=== PATIENT | male | born 1970 | race Caucasian/White ===

== ENCOUNTER 2017-07-19 19:53 | Emergency (ER) | payer BC ==
[2017-07-19] MEDS ORDERED: Cyclobenzaprine 10 MG Tab PO ONE ×2 (19:54→20:57)
[2017-07-19] MEDS ORDERED: Acetaminophen/HYDROcodone 325-10 MG Tab PO ONE (19:54)
--- NOTE | 2017-07-19 21:05 | EDM.PDOC ---
ED HPI GENERAL MEDICAL PROBLEM - General Chief Complaint: Lower Extremity Injury/Pain Stated Complaint: PAIN IN HIP [id number] Time Seen by Provider: 07/19/17 21:00 Source of Information: Reports: Patient History Limitations: Reports: No Limitations - History of Present Illness INITIAL COMMENTS - FREE TEXT/NARRATIVE: onset right sciatic pain Thursday while visiting [place], been doing lot of walking too. laso been taking MTX & pred many years. 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: Reports: Other Medication(s) Right Hip Pain Score (Numeric/FACES): 8 - Related Data Allergies Allergy/AdvReac Type Severity Reaction Status Date / Time Penicillins Allergy Severe Swelling Verified 07/19/17 20:22 Home Meds: Home Meds Multivitamin 1 tab PO DAILY 12/18/13 [History] Otc Labido Enhancer 12/18/13 [History] Aspirin [Halfprin] 81 mg PO DAILY 12/26/13 [History] Ibuprofen 800 mg PO 12/26/13 [History] Nitroglycerin 0.4 mg SL 12/26/13 [History] Omeprazole [Prilosec] 20 mg PO DAILY 12/26/13 [History] Calcium DAILY 07/19/17 [History] Folic Acid [Folic Acid] DAILY 07/19/17 [History] Methotrexate Sodium [Methotrexate] 8 tab PO DAILY 07/19/17 [History] Tramadol 1 tab PO ASDIRECTED PRN 07/19/17 [History] Vit D 5000 Iu 1 cap PO DAILY 07/19/17 [History] predniSONE [Prednisone] 07/19/17 [History] Past Medical History HEENT History: Reports: Impaired Vision Other HEENT History: wears glasses Cardiovascular History: Reports: Other (See Below) Other Cardiovascular History: pericarditis Respiratory History: Reports: None Gastrointestinal History: Reports: GERD Genitourinary History: Reports: None Musculoskeletal History: Reports: Other (See Below) Other Musculoskeletal History: decreased bone density Neurological History: Reports: None Psychiatric History: Reports: None Endocrine/Metabolic History: Reports: None Hematologic History: Reports: None Immunologic History: Reports: None Oncologic (Cancer) History: Reports: None Dermatologic History: Reports: None - Past Surgical History Musculoskeletal Surgical History: Reports: Other (See Below) Other Musculoskeletal Surgeries/Procedures:: 3 surgeries to left arm for reconstruction Social & Family History - Family History Family Medical History: Noncontributory - Tobacco Use Smoking Status *Q: Current Every Day Smoker Years of Tobacco use: 25 Packs/Tins Daily: 0.3 Second Hand Smoke Exposure: Yes - Caffeine Use Caffeine Use: Reports: Soda - Alcohol Use Days Per Week of Alcohol Use: 7 Number of Drinks Per Day: 1 Total Drinks Per Week: 7 Date of Last Drink: 07/19/17 - Recreational Drug Use Recreational Drug Use: No Review of Systems - Review of Systems Review Of Systems: ROS reveals no pertinent complaints other than HPI. ED EXAM, GENERAL - Physical Exam Exam: See Below Exam Limited By: No Limitations General Appearance: Alert, WD/WN, Mild Distress, Moderate Distress, Other (pain) Ears: Hearing Grossly Normal Throat/Mouth: Normal Voice, No Airway Compromise Head: Atraumatic Neck: Non-Tender, Full Range of Motion Respiratory/Chest: No Respiratory Distress Cardiovascular: Regular Rate, Rhythm GI/Abdominal: Soft, Non-Tender Back Exam: Other (right hip region tender with radiculitis, gait limited to pain ) Neurological: Alert, Oriented, Normal Cognition, No Motor/Sensory Deficits Psychiatric: Tearful Skin Exam: Warm, Dry, Normal Color Lymphatic: No Adenopathy Course - Vital Signs Last Recorded V/S: Last Vital Signs Temp 36.6 C 07/19/17 20:00 Pulse 94 07/19/17 20:00 Resp 16 07/19/17 20:00 BP 143/98 H 07/19/17 20:00 Pulse Ox 99 07/19/17 20:00 - Orders/Labs/Meds Meds: Medications Discontinued Medications Generic Name Dose Route Start Last Admin Trade Name Freq PRN Reason Stop Dose Admin Cyclobenzaprine HCl 5 mg 07/19/17 20:57 07/19/17 21:04 Flexeril PO 07/19/17 20:58 5 mg ONETIME ONE Administration - Re-Assessments/Exams Free Text/Narrative Re-Assessment/Exam: 07/19/17 22:52 results discussed with pt & spouse. Departure - Departure Time of Disposition: 22:53 Disposition: Home, Self-Care 01 Condition: Good Clinical Impression: SI joint arthritis, Lumbar radiculopathy, right Sciatica Qualifiers: Laterality: right Qualified Code(s): M54.31 - Sciatica, right side - Discharge Information Instructions: Sciatica, [id number] Forms: ED Department Discharge Additional Instructions: 1) rest and avoid bending lifting straining 2) try ice or heat to sore areas 3) see Thursday for MRI SCAN of [id number] region 4) recheck if there is any change or concerns rx togo; flexeril 10mg x 1 norco x 1
[2017-07-19] MEDS ORDERED: Cyclobenzaprine 10 MG Tab ONE (22:51)
[2017-07-19] MEDS ORDERED: Acetaminophen/HYDROcodone 325-10 MG Tab ONE (22:51)
== END 2017-07-19 23:00 | disposition home or self-care (01) ==
LOC: DL.ED 19:53
DX: M47.898 Other spondylosis, sacral and sacrococcygeal region (principal); M54.16 Radiculopathy, lumbar region; M54.41 Lumbago with sciatica, right side; F17.210 Nicotine dependence, cigarettes, uncomplicated; Z88.0 Allergy status to penicillin; Z79.899 Other long term (current) drug therapy; Z79.82 Long term (current) use of aspirin
CPT/HCPCS: 72131; 72192; 99283; A9270

== ENCOUNTER 2017-10-12 15:28 | Emergency (ER) | payer BC ==
--- NOTE | 2017-10-12 16:39 | CR ---
Clinical history: 47-year-old male chest pain. Interpretation: Patchy atelectasis left base reflecting poor inspiratory effort. No new signs of heart failure, lung mass or focal lobar pneumonia when compared to December 2013 exam. No pneumothorax. CONCLUSION: No acute new cardiopulmonary abnormality.
[2017-10-12 16:44] LABS: ANION GAP 12.9; CHLORIDE,CL 101 mmol/L (101-111); SODIUM,NA 135 mmol/L (135-145)
--- NOTE | 2017-10-12 17:46 | EDM.PDOC ---
ED HPI GENERAL MEDICAL PROBLEM - General Chief Complaint: Cardiovascular Problem Stated Complaint: [id number] PAIN ACROSS SHOULDER/HEART Time Seen by Provider: 10/12/17 17:10 Source of Information: Reports: Patient History Limitations: Reports: No Limitations - History of Present Illness INITIAL COMMENTS - FREE TEXT/NARRATIVE: This 47 yo male patient reports to the ED with chest pain (intermittent for the past 2 days). The patient reports [place] and had increased pain from his left shoulder through his entire chest with shortness of breath. The patient reports a history of paracarditis (last episode was in December). The patient reports he was placed on Methotrexate and prednisone after being diagnosed with paracarditis. The patient reports he has not been taken prednisone since June. Onset: Today Duration: Resolved Prior to Arrival Location: Reports: Chest Quality: Reports: Ache, Dull Severity: Moderate Improves with: Reports: Rest Worsens with: Reports: Other Associated Symptoms: Reports: Chest Pain Left Shoulder Pain Score (Numeric/FACES): 4 - Related Data Allergies Allergy/AdvReac Type Severity Reaction Status Date / Time Penicillins Allergy Severe Swelling Verified 07/19/17 20:22 Home Meds: Home Meds Multivitamin 1 tab PO DAILY 12/18/13 [History] Otc Labido Enhancer 12/18/13 [History] Aspirin [Halfprin] 81 mg PO DAILY 12/26/13 [History] Ibuprofen 800 mg PO 12/26/13 [History] Nitroglycerin 0.4 mg SL 12/26/13 [History] Omeprazole [Prilosec] 20 mg PO DAILY 12/26/13 [History] Calcium DAILY 07/19/17 [History] Folic Acid [Folic Acid] DAILY 07/19/17 [History] Methotrexate Sodium [Methotrexate] 8 tab PO WEEKLY 07/19/17 [History] Tramadol 1 tab PO ASDIRECTED PRN 07/19/17 [History] Vit D 5000 Iu 1 cap PO DAILY 07/19/17 [History] predniSONE [Prednisone] 10 mg PO DAILY 07/19/17 [History] Past Medical History HEENT History: Reports: Impaired Vision Other HEENT History: wears glasses Cardiovascular History: Reports: Other (See Below) Other Cardiovascular History: pericarditis Respiratory History: Reports: None Gastrointestinal History: Reports: GERD Genitourinary History: Reports: None Musculoskeletal History: Reports: Other (See Below) Other Musculoskeletal History: decreased bone density Neurological History: Reports: None Psychiatric History: Reports: None Endocrine/Metabolic History: Reports: None Hematologic History: Reports: None Immunologic History: Reports: None Oncologic (Cancer) History: Reports: None Dermatologic History: Reports: None - Past Surgical History Musculoskeletal Surgical History: Reports: Other (See Below) Other Musculoskeletal Surgeries/Procedures:: 3 surgeries to left arm for reconstruction Social & Family History - Family History Family Medical History: Noncontributory - Tobacco Use Smoking Status *Q: Current Every Day Smoker Years of Tobacco use: 10 Packs/Tins Daily: 0.3 Second Hand Smoke Exposure: Yes - Caffeine Use Caffeine Use: Reports: Coffee, Soda - Alcohol Use Days Per Week of Alcohol Use: 3 Number of Drinks Per Day: 1 Total Drinks Per Week: 3 - Recreational Drug Use Recreational Drug Use: No ED ROS GENERAL - Review of Systems Review Of Systems: ROS reveals no pertinent complaints other than HPI. ED EXAM, GENERAL - Physical Exam Exam: See Below Exam Limited By: No Limitations General Appearance: Alert, WD/WN, Mild Distress Eye Exam: Bilateral Eye: EOMI, Normal Inspection, PERRL Ears: Normal External Exam, Normal Canal, Hearing Grossly Normal, Normal TMs Nose: Normal Inspection, Normal Mucosa, No Blood Throat/Mouth: Normal Inspection, Normal Lips, Normal Teeth, Normal Gums, Normal Oropharynx, Normal Voice, No Airway Compromise Head: Atraumatic Neck: Normal Inspection, Supple, Non-Tender, Full Range of Motion Respiratory/Chest: Normal Breath Sounds, No Accessory Muscle Use, Chest Non- Tender, Decreased Breath Sounds Cardiovascular: Normal Peripheral Pulses, Regular Rate, Rhythm, No Edema, No Gallop, No JVD, No Murmur, No Rub GI/Abdominal: Normal Bowel Sounds, Soft, Non-Tender, No Organomegaly, No Distention, No Abnormal Bruit, No Mass, Pelvis Stable, Other (obese) (Male) Exam: Deferred Rectal (Males) Exam: Deferred Back Exam: Normal Inspection, Full Range of Motion, NT Extremities: Normal Inspection, Normal Range of Motion, Non-Tender, Normal Capillary Refill, No Pedal Edema Neurological: Alert, Oriented, CN II-XII Intact, Normal Cognition, Normal Gait, Normal Reflexes, No Motor/Sensory Deficits Psychiatric: Normal Affect, Normal Mood Skin Exam: Warm, Dry, Intact, Normal Color, No Rash Lymphatic: No Adenopathy Course - Vital Signs Last Recorded V/S: Last Vital Signs Temp 37.7 C 10/12/17 16:01 Pulse 108 H 10/12/17 16:01 Resp 20 10/12/17 16:01 BP 146/99 H 10/12/17 16:01 Pulse Ox 99 10/12/17 16:01 - Orders/Labs/Meds Orders: Active Orders 24 hr Category Date Time Status EKG Documentation Completion [RC] URGENT Care 10/12/17 16:08 Ordered Echo Comp wo Cont [US] Timed Exams 10/13/17 10:00 Ordered C-REACTIVE PROTEIN [CHEM] Stat Lab 10/12/17 18:41 Ordered CULTURE BLOOD [BC] Stat Lab 10/12/17 16:09 Ordered CULTURE BLOOD [BC] Stat Lab 10/12/17 16:09 Ordered SEDIMENTATION RATE MANUAL [HEME] Stat Lab 10/12/17 18:41 Ordered Blood Culture x2 Reflex Set [OM.PC] Stat Oth 10/12/17 16:08 Ordered Labs: Laboratory Tests 10/12/17 10/12/17 10/12/17 Range/Units 16:21 16:21 16:21 WBC 16.8 H (5.0-10.0) 10^3/uL RBC 5.76 (4.6-6.2) 10^6/uL Hgb 11.8 L (14.0-18.0) g/dL Hct 36.0 L (40.0-54.0) % MCV 62.5 L (80-100) fL MCH 20.5 L (27.0-34.0) pg MCHC 32.8 L (33.0-35.0) g/dL Plt Count 294 (150-450) 10^3/uL Neut % (Auto) 77.5 H (42.2-75.2) % Lymph % (Auto) 13.5 L (20.5-50.1) % Person % (Auto) 7.7 (2-8) % Eos % (Auto) 1.0 (1.0-3.0) % Baso % (Auto) 0.3 (0.0-1.0) % Sodium 135 (135-145) mmol/L Potassium 3.9 (3.6-5.0) mmol/L Chloride 101 (101-111) mmol/L Carbon Dioxide 25.0 (21.0-31.0) mmol/L Anion Gap 12.9 BUN 14 (7-18) mg/dL Creatinine 1.2 (0.6-1.3) mg/dL Est Cr Clr Drug Dosing 77.73 mL/min Estimated GFR (MDRD) > 60 BUN/Creatinine Ratio 11.66 Glucose 109 H (74-105) mg/dL Lactic Acid 1.6 (0.5-2.2) mmol/L Calcium 9.0 (8.4-10.2) mg/dl Total Bilirubin 1.2 H (0.2-1.0) mg/dL AST 27 (10-42) IU/L ALT 31 (10-60) IU/L Alkaline Phosphatase 50 (42-121) IU/L Troponin I < 0.02 (0.00-0.02) ng/ml B-Natriuretic Peptide (0-100) pg/ml Total Protein 7.0 (6.7-8.2) g/dl Albumin 4.0 (3.2-5.5) g/dl Globulin 3.0 Albumin/Globulin Ratio 1.33 03/19/18 Range/Units 16:21 WBC (5.0-10.0) 10^3/uL RBC (4.6-6.2) 10^6/uL Hgb (14.0-18.0) g/dL Hct (40.0-54.0) % MCV (80-100) fL MCH (27.0-34.0) pg MCHC (33.0-35.0) g/dL Plt Count (150-450) 10^3/uL Neut % (Auto) (42.2-75.2) % Lymph % (Auto) (20.5-50.1) % Person % (Auto) (2-8) % Eos % (Auto) (1.0-3.0) % Baso % (Auto) (0.0-1.0) % Sodium (135-145) mmol/L Potassium (3.6-5.0) mmol/L Chloride (101-111) mmol/L Carbon Dioxide (21.0-31.0) mmol/L Anion Gap BUN (7-18) mg/dL Creatinine (0.6-1.3) mg/dL Est Cr Clr Drug Dosing mL/min Estimated GFR (MDRD) BUN/Creatinine Ratio Glucose (74-105) mg/dL Lactic Acid (0.5-2.2) mmol/L Calcium (8.4-10.2) mg/dl Total Bilirubin (0.2-1.0) mg/dL AST (10-42) IU/L ALT (10-60) IU/L Alkaline Phosphatase (42-121) IU/L Troponin I (0.00-0.02) ng/ml B-Natriuretic Peptide 23 (0-100) pg/ml Total Protein (6.7-8.2) g/dl Albumin (3.2-5.5) g/dl Globulin Albumin/Globulin Ratio Meds: Medications Discontinued Medications Generic Name Dose Route Start Last Admin Trade Name Freq PRN Reason Stop Dose Admin Prednisone 40 mg 10/12/17 18:51 Prednisone PO 10/12/17 18:52 ONETIME ONE Departure - Departure Time of Disposition: 18:55 Disposition: Home, Self-Care 01 Condition: Fair Clinical Impression: Pericarditis Qualifiers: Pericarditis type: idiopathic Chronicity: acute Qualified Code(s): I30.0 - Acute nonspecific idiopathic pericarditis Instructions: Pericarditis Forms: ED Department Discharge Care Plan Goals: The patient and were advised of the examination, lab and x-ray results during the visit. The patient was given an oral dose of Prednisone (40 mg) while in the ED. The patient was scheduled for an Echo tomorrow at 1000. The patient was discharged with a script for Prednisone (20 mg) #10 to take 2 by mouth daily for 5 days. The results of the Echo and lab will be forwarded to Dr. Rhoades and Dr. Blackburn with [facility] in [place] for continued evaluation and management. If the patient has any additional symptoms or concerns, the patient should follow-up with his primary care facility or return to the emergency department. - My Orders Last 24 Hours: My Active Orders 10/12/17 16:08 EKG Documentation Completion [RC] URGENT Blood Culture x2 Reflex Set [OM.PC] Stat 10/12/17 16:09 CULTURE BLOOD [BC] Stat CULTURE BLOOD [BC] Stat 10/12/17 18:41 C-REACTIVE PROTEIN [CHEM] Stat SEDIMENTATION RATE MANUAL [HEME] Stat 10/13/17 10:00 Echo Comp wo Cont [US] Timed - Assessment/Plan Last 24 Hours: My Active Orders 10/12/17 16:08 EKG Documentation Completion [RC] URGENT Blood Culture x2 Reflex Set [OM.PC] Stat 10/12/17 16:09 CULTURE BLOOD [BC] Stat CULTURE BLOOD [BC] Stat 10/12/17 18:41 C-REACTIVE PROTEIN [CHEM] Stat SEDIMENTATION RATE MANUAL [HEME] Stat 10/13/17 10:00 Echo Comp wo Cont [US] Timed
[2017-10-12] MEDS ORDERED: predniSONE 20 MG Tab PO ONE (18:51)
--- NOTE | 2017-10-14 06:20 | EKG ---
10/12/2017 - EFREN MALIN - This 12-lead EKG shows a normal sinus rhythm with a ventricular rate of 98. Normal axis and intervals. No acute ST-segment or T-wave changes. [facility] /[id number]
== END 2017-10-12 19:10 | disposition home or self-care (01) ==
LOC: DL.ED 15:28
DX: I30.0 Acute nonspecific idiopathic pericarditis (principal); F17.210 Nicotine dependence, cigarettes, uncomplicated; Z88.0 Allergy status to penicillin; Z79.82 Long term (current) use of aspirin; Z79.899 Other long term (current) drug therapy
CPT/HCPCS: 36415; 71046; 80053; 83605; 83880; 84484; 85025; 85651; 86140; 87040; 93005; 99285; A9270

== ENCOUNTER 2017-10-13 17:18 | Inpatient (IN) | payer BC ==
--- NOTE | 2017-10-13 17:49 | EDM.PDOC ---
<Kalyani Reese - Last Filed: 10/13/17 18:31> ED HPI GENERAL MEDICAL PROBLEM - General Stated Complaint: [id number] SOB CHEST PAIN Time Seen by Provider: 10/13/17 17:25 Source of Information: Reports: Patient, Family, Old Records, RN, RN Notes Reviewed History Limitations: Reports: No Limitations - History of Present Illness INITIAL COMMENTS - FREE TEXT/NARRATIVE: Tanner is a 47 yo male who presents to the ED due to chest pain and shortness of breath. He reports that he had similar pain yesterday and was seen in the ED and had an echo this am. Reports that he was not having any pain until about a couple hours ago when he was admitting his son to the hospital. He reports that he was just sitting in a chair when the pain had started. Reports that his pain gets worse with lying flat. Pain improves with sitting up. He describes the pain as tightness in his chest starting in his left chest and radiating down into his right upper abd. Denies nausea or vomiting. Reports that he has been more short of breath today. He has had a productive cough and low grade fever since yesterday with a temp up to 99 at home. Patient denies constipation or diarrhea. Denies runny nose, sore throat, or sinus pressure. Onset: Today Onset Date: 10/13/17 Onset Time: 15:30 Duration: Hour(s):, Getting Worse, Heavy Location: Reports: Chest Quality: Reports: Dull Severity: Moderate Improves with: Reports: Other (Sitting up in a chair ) Worsens with: Reports: Movement Associated Symptoms: Reports: Chest Pain, cough w sputum, Fever/Chills Bilateral Chest Pain Score (Numeric/FACES): 10 - Related Data Allergies Allergy/AdvReac Type Severity Reaction Status Date / Time Penicillins Allergy Severe Swelling Verified 10/13/17 21:14 Home Meds: Home Meds Multivitamin 1 tab PO DAILY 12/18/13 [History] Aspirin [Halfprin] 81 mg PO DAILY 12/26/13 [History] Ibuprofen 800 mg PO Q8H 12/26/13 [History] Nitroglycerin 0.4 mg SL ASDIRECTED PRN 12/26/13 [History] Omeprazole [Prilosec] 20 mg PO DAILY 12/26/13 [History] Calcium 1,200 mg PO DAILY 07/19/17 [History] Folic Acid [Folic Acid] 1 mg PO DAILY 07/19/17 [History] Methotrexate Sodium [Methotrexate] 20 mg PO WEEKLY 07/19/17 [History] Tramadol 50 mg PO Q6H PRN 07/19/17 [History] Vit D 5000 Iu 1 cap PO DAILY 07/19/17 [History] predniSONE [Prednisone] 10 mg PO DAILY 07/19/17 [History] Past Medical History HEENT History: Reports: Impaired Vision Other HEENT History: wears glasses Cardiovascular History: Reports: Other (See Below) Other Cardiovascular History: pericarditis Respiratory History: Reports: None Gastrointestinal History: Reports: GERD Genitourinary History: Reports: None Musculoskeletal History: Reports: Other (See Below) Other Musculoskeletal History: decreased bone density Neurological History: Reports: None Psychiatric History: Reports: None Endocrine/Metabolic History: Reports: None Hematologic History: Reports: None Immunologic History: Reports: None Oncologic (Cancer) History: Reports: None Dermatologic History: Reports: None - Past Surgical History Musculoskeletal Surgical History: Reports: Other (See Below) Other Musculoskeletal Surgeries/Procedures:: 3 surgeries to left arm for reconstruction Social & Family History - Family History Family Medical History: Noncontributory - Tobacco Use Smoking Status *Q: Current Every Day Smoker Years of Tobacco use: 10 Packs/Tins Daily: 0.3 Second Hand Smoke Exposure: Yes - Caffeine Use Caffeine Use: Reports: Coffee, Soda - Alcohol Use Days Per Week of Alcohol Use: 3 Number of Drinks Per Day: 1 Total Drinks Per Week: 3 - Recreational Drug Use Recreational Drug Use: No ED ROS GENERAL - Review of Systems Review Of Systems: ROS reveals no pertinent complaints other than HPI. ED EXAM, GENERAL - Physical Exam Exam: See Below Exam Limited By: No Limitations General Appearance: Alert, WD/WN, No Apparent Distress Eye Exam: Bilateral Eye: EOMI, PERRL Ears: Normal External Exam, Normal Canal, Hearing Grossly Normal, Normal TMs Ear Exam: Bilateral Ear: Auricle Normal, Canal Normal, TM normal Nose: Normal Inspection, Normal Mucosa, No Blood Throat/Mouth: Normal Inspection, Normal Lips, Normal Teeth, Normal Gums, Normal Oropharynx, Normal Voice, No Airway Compromise Head: Atraumatic, Normocephalic Neck: Normal Inspection, Supple, Non-Tender, Full Range of Motion Respiratory/Chest: Lungs Clear (Clear lung sounds bilaterally, dimished throughout. Patient has chest pain to left chest radiating into upper right abdomin.), Accessory Muscle Use (Abdominal breathing noted. ) Cardiovascular: Normal Peripheral Pulses, Regular Rate, Rhythm, No Edema, No Gallop, No JVD, No Murmur, No Rub GI/Abdominal: Normal Bowel Sounds, Soft, Non-Tender, No Organomegaly, No Distention, No Abnormal Bruit, No Mass (Male) Exam: Deferred Rectal (Males) Exam: Deferred Back Exam: Normal Inspection, Full Range of Motion, NT Extremities: Normal Inspection, Normal Range of Motion, Non-Tender, Normal Capillary Refill, No Pedal Edema Neurological: Alert, Oriented, CN II-XII Intact, Normal Cognition, Normal Gait, Normal Reflexes, No Motor/Sensory Deficits Psychiatric: Normal Affect, Normal Mood Skin Exam: Warm, Dry, Intact, Normal Color, No Rash Lymphatic: No Adenopathy EKG INTERPRETATION EKG Date: 10/13/17 Time: 17:41 Rhythm: Other (Sinus tachycardia) Rate (Beats/Min): 104 [place]: Normal P-Wave: Present QRS: Normal ST-T: Normal QT: Normal Comparison: No Change Course - Vital Signs Last Recorded V/S: Last Vital Signs Temp 98.2 F 10/14/17 00:00 Pulse 93 10/14/17 00:00 Resp 18 10/14/17 00:00 BP 130/77 10/13/17 21:35 Pulse Ox 99 10/14/17 00:00 - Orders/Labs/Meds Orders: Medication Orders Albuterol (Proventil Neb Soln) 2.5 mg NEB Q4HRRT PRN PRN Reason: dyspnea Last Admin: 10/14/17 00:17 Dose: 2.5 mg Enoxaparin Sodium (Lovenox) 40 mg SUBCUT DAILY [facility] Sodium Chloride (Normal Saline) 1,000 mls @ 125 mls/hr IV ASDIRECTED [facility] Last Admin: 10/13/17 21:19 Dose: 125 mls/hr Ketorolac Tromethamine (Toradol) 30 mg IVPUSH Q8H PRN PRN Reason: Pain Stop: 10/19/17 00:23 Last Admin: 10/14/17 00:47 Dose: 30 mg Morphine Sulfate (Morphine) 2 mg IVPUSH Q2H PRN PRN Reason: Pain (severe 7-10) Last Admin: 10/13/17 22:02 Dose: 2 mg Ondansetron HCl (Zofran) 4 mg IVPUSH Q6H PRN PRN Reason: Nausea/Vomiting Labs: Laboratory Tests 10/13/17 10/13/17 10/13/17 Range/Units 00:03 17:47 17:47 WBC 19.1 H (5.0-10.0) 10^3/uL RBC 6.01 (4.6-6.2) 10^6/uL Hgb 12.4 L (14.0-18.0) g/dL Hct 37.7 L (40.0-54.0) % MCV 62.7 L (80-100) fL MCH 20.6 L (27.0-34.0) pg MCHC 32.9 L (33.0-35.0) g/dL Plt Count 310 (150-450) 10^3/uL Neut % (Auto) 90.1 H (42.2-75.2) % Lymph % (Auto) 5.9 L (20.5-50.1) % [place] % (Auto) 3.7 (2-8) % Eos % (Auto) 0.1 L (1.0-3.0) % Baso % (Auto) 0.2 (0.0-1.0) % D-Dimer, Quantitative (0-400) ng/mL Sodium 133 L (135-145) mmol/L Potassium 4.0 (3.6-5.0) mmol/L Chloride 98 L (101-111) mmol/L Carbon Dioxide 24.0 (21.0-31.0) mmol/L Anion Gap 15.0 BUN 19 H (7-18) mg/dL Creatinine 1.2 (0.6-1.3) mg/dL Est Cr Clr Drug Dosing TNP Estimated GFR (MDRD) > 60 BUN/Creatinine Ratio 15.83 Glucose 145 H (74-105) mg/dL Lactic Acid (0.5-2.2) mmol/L Calcium 9.3 (8.4-10.2) mg/dl Total Bilirubin 1.1 H (0.2-1.0) mg/dL AST 26 (10-42) IU/L ALT 30 (10-60) IU/L Alkaline Phosphatase 52 (42-121) IU/L Troponin I < 0.02 < 0.02 (0.00-0.02) ng/ml Total Protein 7.4 (6.7-8.2) g/dl Albumin 4.2 (3.2-5.5) g/dl Globulin 3.2 Albumin/Globulin Ratio 1.31 Urine Color (YELLOW) Urine Appearance (CLEAR) Urine pH (5.0-9.0) Ur Specific [place] (1.005-1.030) Urine Protein (NEGATIVE) Urine Glucose (UA) (NEGATIVE) Urine Ketones (NEGATIVE) Urine Occult Blood (NEGATIVE) Urine Nitrite (NEGATIVE) Urine Bilirubin (NEGATIVE) Urine Urobilinogen (0.2-1.0) mg/dL Ur Leukocyte Esterase (NEGATIVE) Urine RBC /HPF Urine WBC (0-5/HPF) /HPF Ur Epithelial Cells /HPF Urine Bacteria (0-FEW/HPF) /HPF Urine Mucus /LPF 10/13/17 10/13/17 10/13/17 Range/Units 17:47 18:20 18:41 WBC (5.0-10.0) 10^3/uL RBC (4.6-6.2) 10^6/uL Hgb (14.0-18.0) g/dL Hct (40.0-54.0) % MCV (80-100) fL MCH (27.0-34.0) pg MCHC (33.0-35.0) g/dL Plt Count (150-450) 10^3/uL Neut % (Auto) (42.2-75.2) % Lymph % (Auto) (20.5-50.1) % [place] % (Auto) (2-8) % Eos % (Auto) (1.0-3.0) % Baso % (Auto) (0.0-1.0) % D-Dimer, Quantitative 112 (0-400) ng/mL Sodium (135-145) mmol/L Potassium (3.6-5.0) mmol/L Chloride (101-111) mmol/L Carbon Dioxide (21.0-31.0) mmol/L Anion Gap BUN (7-18) mg/dL Creatinine (0.6-1.3) mg/dL Est Cr Clr Drug Dosing Estimated GFR (MDRD) BUN/Creatinine Ratio Glucose (74-105) mg/dL Lactic Acid 2.4 H (0.5-2.2) mmol/L Calcium (8.4-10.2) mg/dl Total Bilirubin (0.2-1.0) mg/dL AST (10-42) IU/L ALT (10-60) IU/L Alkaline Phosphatase (42-121) IU/L Troponin I (0.00-0.02) ng/ml Total Protein (6.7-8.2) g/dl Albumin (3.2-5.5) g/dl Globulin Albumin/Globulin Ratio Urine Color Yellow (YELLOW) Urine Appearance Slightly cloudy (CLEAR) Urine pH 6.0 (5.0-9.0) Ur Specific [place] <= 1.005 (1.005-1.030) Urine Protein Negative (NEGATIVE) Urine Glucose (UA) Negative (NEGATIVE) Urine Ketones Negative (NEGATIVE) Urine Occult Blood Negative (NEGATIVE) Urine Nitrite Negative (NEGATIVE) Urine Bilirubin Negative (NEGATIVE) Urine Urobilinogen 0.2 (0.2-1.0) mg/dL Ur Leukocyte Esterase Negative (NEGATIVE) Urine RBC 0-5 /HPF Urine WBC 0-5 (0-5/HPF) /HPF Ur Epithelial Cells Rare /HPF Urine Bacteria Not seen (0-FEW/HPF) /HPF Urine Mucus Rare /LPF Meds: Medications Generic Name Dose Route Start Last Admin Trade Name Freq PRN Reason Stop Dose Admin Albuterol 2.5 mg 10/13/17 23:53 10/14/17 00:17 Proventil Neb Soln NEB 2.5 mg Q4HRRT PRN Administration dyspnea Enoxaparin Sodium 40 mg 10/14/17 09:00 Lovenox SUBCUT DAILY [facility] Sodium Chloride 1,000 mls @ 125 mls/hr 10/13/17 19:45 10/13/17 21:19 Normal Saline IV 125 mls/hr ASDIRECTED KEY[facility] Administration Ketorolac Tromethamine 30 mg 10/14/17 00:23 10/14/17 00:47 Toradol IVPUSH 10/19/17 00:23 30 mg Q8H PRN Administration Pain Morphine Sulfate 2 mg 10/13/17 19:35 10/13/17 22:02 Morphine IVPUSH 2 mg Q2H PRN Administration Pain (severe 7-10) Ondansetron HCl 4 mg 10/13/17 19:35 Zofran IVPUSH Q6H PRN Nausea/Vomiting Discontinued Medications Generic Name Dose Route Start Last Admin Trade Name Freq PRN Reason Stop Dose Admin Azithromycin 500 mg/ Sodium 250 mls @ 250 mls/hr 10/13/17 21:08 10/13/17 21: 21 Chloride IV 10/13/17 22:07 250 mls/hr ONETIME ONE Administration Ibuprofen 400 mg 10/13/17 19:35 Motrin PO 10/14/17 00:39 Q6H PRN Pain (mild 1-3) Iopamidol 100 ml 10/13/17 19:11 Isovue-370 (76%) IVPUSH 10/13/17 19:12 ONETIME ONE Iopamidol 75 ml 10/13/17 20:53 10/13/17 20:57 Isovue-300 (61%) IVPUSH 10/13/17 20:54 75 ml ONETIME ONE Administration Lorazepam 1 mg 10/13/17 20:00 10/13/17 20:05 Ativan IVPUSH 10/13/17 20:01 1 mg ONETIME ONE Administration Morphine Sulfate 4 mg 10/13/17 19:31 10/13/17 19:41 Morphine IVPUSH 10/13/17 19:32 4 mg ONETIME ONE Administration Ondansetron HCl 4 mg 10/13/17 19:32 10/13/17 19:37 Zofran IV 10/13/17 19:33 4 mg ONETIME ONE Administration Departure - Departure Disposition: Admitted As Inpatient 65 Clinical Impression: Chest pain Qualifiers: Chest pain type: other chest pain Qualified Code(s): R07.89 - Other chest pain ; R07.8 - Other chest pain Left lower lobe pneumonia Qualifiers: Pneumonia type: due to unspecified organism Qualified Code(s): J18.1 - Lobar pneumonia, unspecified organism <Eamon Blas - Last Filed: 10/13/17 19:35> <Danna Gonsalves - Last Filed: 10/14/17 02:08> Course - Radiology Interpretation Free Text/Narrative:: Chest CT with contrast Dependent atelectasis in lungs bilaterally. More focal air space disease with air bronchograms in left lower lobe which could represent superimposed pneumonia. - Re-Assessments/Exams Free Text/Narrative Re-Assessment/Exam: Dr. Crabtree accepting of patient for admission following CT with negative pericardial effusion. Pain improved following morphine and ativan rating 3/10. VSS. Departure - Departure Time of Disposition: 21:25 Condition: Good
[2017-10-13 18:12] LABS: CHLORIDE,CL 98 mmol/L (101-111); SODIUM,NA 133 mmol/L (135-145)
[2017-10-13] MEDS ORDERED: Iopamidol 755 Mg/ML 100 ML Bottle IVPUSH ONE (19:11)
[2017-10-13] MEDS ORDERED: Morphine 4 MG/ML Syringe IVPUSH ONE (19:31)
[2017-10-13] MEDS ORDERED: Ondansetron 4 MG/2 ML SDV IV ONE (19:32)
[2017-10-13] MEDS ORDERED: Ondansetron 4 MG/2 ML SDV IVPUSH PRN (19:35)
[2017-10-13] MEDS ORDERED: Ibuprofen 400 MG Tab PO PRN (19:35)
[2017-10-13] MEDS ORDERED: LORazepam 2 MG/ML Syringe IVPUSH ONE (20:00)
[2017-10-13] MEDS ORDERED: Iopamidol 612 MG/ML 75 ML Bottle IVPUSH ONE (20:53)
[2017-10-13] MEDS ORDERED: Azithromycin 500 MG in Sodium Chloride 0.9% 250 ML IV ONE (21:08)
[2017-10-13] MEDS: Sodium Chloride 0.9% 1,000 ML IV SCH (21:19)
[2017-10-13] MEDS: Morphine 2 MG/ML Syringe IVPUSH PRN (22:02)
[2017-10-13] MEDS ORDERED: Albuterol 0.083% 2.5 MG/3 ML Neb Soln NEB PRN (23:53)
[2017-10-14] MEDS: Ketorolac 30 MG/ML SDV IVPUSH PRN ×2 (00:47→08:11)
[2017-10-14] MEDS: Morphine 2 MG/ML Syringe IVPUSH PRN (05:40)
[2017-10-14] MEDS: Sodium Chloride 0.9% 1,000 ML IV SCH ×2 (06:27→17:50)
[2017-10-14 07:27] LABS: CHLORIDE,CL 102 mmol/L (101-111); SODIUM,NA 135 mmol/L (135-145)
[2017-10-14] MEDS ORDERED: Nitroglycerin 0.4 MG Tab.SL SL PRN (09:20)
[2017-10-14] MEDS: Enoxaparin 40 MG/0.4 ML Syringe SUBCUT SCH (09:21)
--- NOTE | 2017-10-14 09:47 | PCM.HP ---
H&P History of Present Illness - General Date of Service: 10/13/17 Admit Problem/Dx: Admission Diagnosis/Problem Admission Diagnosis/Problem Chest pain at rest Source of Information: Patient History Limitations: Reports: No Limitations - History of Present Illness Initial Comments - Free Text/Narative: The patient presented with complaint of chest pain associated with shortness of breath. Symptoms have been going on for about 4 days and worsening. Has associated chills but no rigors. No nausea no vomiting. Was seen in emergency room yesterday and treated with oral steroids. Onset of Symptoms: Reports: Gradual Duration of Symptoms: Reports: Day(s): Location: Reports: Chest Quality: Reports: Pressure Severity: Moderate Improves with: Reports: Rest Worsens with: Reports: Breathing Associated Symptoms: Reports: Cough, Fever/Chills Bilateral Chest Pain Score (Numeric/FACES): 6 - Related Data Allergies/Adverse Reactions: Allergies Allergy/AdvReac Type Severity Reaction Status Date / Time Penicillins Allergy Severe Swelling Verified 10/13/17 21:14 Home Medications: Home Meds Multivitamin 1 tab PO DAILY 12/18/13 [History] Aspirin [Halfprin] 81 mg PO DAILY 12/26/13 [History] Ibuprofen 800 mg PO Q8H 12/26/13 [History] Nitroglycerin 0.4 mg SL ASDIRECTED PRN 12/26/13 [History] Omeprazole [Prilosec] 20 mg PO DAILY 12/26/13 [History] Calcium 1,200 mg PO DAILY 07/19/17 [History] Folic Acid [Folic Acid] 1 mg PO DAILY 07/19/17 [History] Methotrexate Sodium [Methotrexate] 20 mg PO WEEKLY 07/19/17 [History] Tramadol 50 mg PO Q6H PRN 07/19/17 [History] Vit D 5000 Iu 1 cap PO DAILY 07/19/17 [History] predniSONE [Prednisone] 10 mg PO DAILY 07/19/17 [History] Past Medical History HEENT History: Reports: Impaired Vision Other HEENT History: wears glasses Cardiovascular History: Reports: High Cholesterol, Other (See Below) Other Cardiovascular History: pericarditis Respiratory History: Reports: None Gastrointestinal History: Reports: GERD Genitourinary History: Reports: None Musculoskeletal History: Reports: Other (See Below) Other Musculoskeletal History: decreased bone density Neurological History: Reports: None Psychiatric History: Reports: None Endocrine/Metabolic History: Reports: Other (See Below) Other Endocrine/Metabolic History: low testosterone in mal[place]. thalassemia carrier Hematologic History: Reports: Anemia Immunologic History: Reports: None Oncologic (Cancer) History: Reports: None Dermatologic History: Reports: Other (See Below) Other Dermatologic History: toe fungus - Past Surgical History Musculoskeletal Surgical History: Reports: Other (See Below) Other Musculoskeletal Surgeries/Procedures:: 3 surgeries to left arm for reconstruction Social & Family History - Family History Family Medical History: Noncontributory - Tobacco Use Smoking Status *Q: Never Smoker Years of Tobacco use: 10 Packs/Tins Daily: 0.3 Second Hand Smoke Exposure: No - Caffeine Use Caffeine Use: Reports: None - Alcohol Use Days Per Week of Alcohol Use: 3 Number of Drinks Per Day: 1 Total Drinks Per Week: 3 - Recreational Drug Use Recreational Drug Use: No H&P Review of Systems - Review of Systems: Review Of Systems: See Below (As noted above) General: Reports: Fever, Chills, Malaise Pulmonary: Reports: Shortness of Breath, Cough Gastrointestinal: Reports: No Symptoms Genitourinary: Reports: No Symptoms Musculoskeletal: Reports: No Symptoms Skin: Reports: No Symptoms Psychiatric: Reports: No Symptoms Neurological: Reports: No Symptoms Exam - Exam Exam: See Below - Vital Signs Vital Signs: Last Vital Signs Temp 37.1 C 10/14/17 09:25 Pulse 99 10/14/17 07:30 Resp 20 10/14/17 07:30 BP 116/75 10/14/17 07:30 Pulse Ox 93 L 10/14/17 07:30 Weight: 104.236 kg - Exam General: Alert, Oriented, Mild Distress HEENT: PERRLA, Hearing Intact, Mucosa Moist & [place], Nares Patent, Normal Nasal Septum, Posterior Pharynx Clear, Conjunctiva Clear, EOMI, EACs Clear, TMs Clear Neck: Supple Lungs: Decreased Breath Sounds Cardiovascular: Regular Rate GI/Abdominal Exam: Normal Bowel Sounds, Soft, Non-Tender, No Organomegaly, No Distention, No Abnormal Bruit, No Mass, Pelvis Stable (Male) Exam: No Hernia, Normal Inspection, Normal Prostate, Circumcised Rectal (Males) Exam: Normal Exam, Normal Rectal Tone, Prostate Normal Back Exam: Normal Inspection, Full Range of Motion, NT Extremities: Normal Inspection, Normal Range of Motion, Non-Tender, No Pedal Edema, Normal Capillary Refill Skin: Warm, Dry, Intact Neurological: Cranial Nerves Intact, Reflexes Equal Bilateral Neuro Extensive - Mental Status: Alert, Oriented x3, Normal Mood/Affect, Normal Cognition Neuro Extensive - Motor, Sensory, Reflexes: CN II-XII Intact, Normal Gait, Normal Reflexes Psychiatric: Alert, Normal Affect, Normal Mood - Patient Data Lab Results Last 24 hrs: Laboratory Results - last 24 hr 10/14/17 10/14/17 10/14/17 Range/Units 00:03 06:58 06:58 WBC 15.5 H (5.0-10.0) 10^3/uL RBC 5.48 (4.6-6.2) 10^6/uL Hgb 11.3 L (14.0-18.0) g/dL Hct 34.5 L (40.0-54.0) % MCV 63.0 L (80-100) fL MCH 20.6 L (27.0-34.0) pg MCHC 32.8 L (33.0-35.0) g/dL Plt Count 294 (150-450) 10^3/uL Neut % (Auto) 77.0 H (42.2-75.2) % Lymph % (Auto) 11.1 L (20.5-50.1) % [place] % (Auto) 11.4 H (2-8) % Eos % (Auto) 0.2 L (1.0-3.0) % Baso % (Auto) 0.3 (0.0-1.0) % Sodium 135 (135-145) mmol/L Potassium 4.0 (3.6-5.0) mmol/L Chloride 102 (101-111) mmol/L Carbon Dioxide 25.0 (21.0-31.0) mmol/L Anion Gap 12.0 BUN 17 (7-18) mg/dL Creatinine 1.2 (0.6-1.3) mg/dL Est Cr Clr Drug Dosing 77.73 mL/min Estimated GFR (MDRD) > 60 BUN/Creatinine Ratio 14.16 Glucose 117 H (74-105) mg/dL Lactic Acid 2.5 H (0.5-2.2) mmol/L Calcium 8.5 (8.4-10.2) mg/dl Total Bilirubin 1.5 H (0.2-1.0) mg/dL AST 22 (10-42) IU/L ALT 24 (10-60) IU/L Alkaline Phosphatase 47 (42-121) IU/L Troponin I (0.00-0.02) ng/ml Total Protein 7.1 (6.7-8.2) g/dl Albumin 3.8 (3.2-5.5) g/dl Globulin 3.3 Albumin/Globulin Ratio 1.15 10/14/17 10/14/17 Range/Units 06:58 06:58 WBC (5.0-10.0) 10^3/uL RBC (4.6-6.2) 10^6/uL Hgb (14.0-18.0) g/dL Hct (40.0-54.0) % MCV (80-100) fL MCH (27.0-34.0) pg MCHC (33.0-35.0) g/dL Plt Count (150-450) 10^3/uL Neut % (Auto) (42.2-75.2) % Lymph % (Auto) (20.5-50.1) % [place] % (Auto) (2-8) % Eos % (Auto) (1.0-3.0) % Baso % (Auto) (0.0-1.0) % Sodium (135-145) mmol/L Potassium (3.6-5.0) mmol/L Chloride (101-111) mmol/L Carbon Dioxide (21.0-31.0) mmol/L Anion Gap BUN (7-18) mg/dL Creatinine (0.6-1.3) mg/dL Est Cr Clr Drug Dosing mL/min Estimated GFR (MDRD) BUN/Creatinine Ratio Glucose (74-105) mg/dL Lactic Acid 1.4 (0.5-2.2) mmol/L Calcium (8.4-10.2) mg/dl Total Bilirubin (0.2-1.0) mg/dL AST (10-42) IU/L ALT (10-60) IU/L Alkaline Phosphatase (42-121) IU/L Troponin I < 0.02 (0.00-0.02) ng/ml Total Protein (6.7-8.2) g/dl Albumin (3.2-5.5) g/dl Globulin Albumin/Globulin Ratio Result Diagrams: 10/14/17 06:58 10/14/17 06:58 *Q Meaningful Use (ADM) - VTE *Q VTE Criteria *Q: - Stroke *Q Stroke Criteria *Q: - AMI *Q AMI Criteria *Q: - Problem List (1) Left lower lobe pneumonia SNOMED Code(s): 432395897 ICD Code: J18.1 - LOBAR PNEUMONIA, UNSPECIFIED ORGANISM Status: Acute Current Visit: Yes Onset Date: ~10/08/17 Qualifiers: Pneumonia type: due to unspecified organism Qualified Code(s): J18.1 - Lobar pneumonia, unspecified organism Problem List Initiated/Reviewed/Updated: Yes Orders Last 24hrs: Active Orders 24 hr Category Date Time Status Flutter Valve Therapy [RT Chest Physiotherapy] [RC] Care 10/13/17 23:54 Active ASDIRECTED RT Aerosol Therapy [RC] ASDIRECTED Care 10/13/17 23:53 Active RT Incentive Spirometry [RC] ASDIRECTED Care 10/13/17 23:54 Active BASIC METABOLIC PANEL,BMP [CHEM] Routine Lab 10/15/17 09:40 Ordered CBC WITH AUTO DIFF [HEME] Routine Lab 10/15/17 09:39 Ordered Albuterol [Proventil Neb Soln] Med 10/13/17 23:53 Active 2.5 mg NEB Q4HRRT PRN Aspirin [Halfprin] Med 10/15/17 09:00 Ordered 81 mg PO DAILY Calcium Med 10/15/17 09:00 Ordered 1,200 mg PO DAILY Folic Acid Med 10/15/17 09:00 Ordered 1 mg PO DAILY Ketorolac [Toradol] Med 10/14/17 00:23 Active 30 mg IVPUSH Q8H PRN Multivitamin Med 10/15/17 09:00 Ordered 1 tab PO DAILY Nitroglycerin [Nitrostat] Med 10/14/17 09:20 Ordered 0.4 mg SL ASDIRECTED PRN Omeprazole Med 10/15/17 09:00 Ordered 20 mg PO DAILY Tramadol Med 10/14/17 09:20 Ordered 50 mg PO Q6H PRN methylPREDNISolone Sod Succ [Solu-MEDROL] Med 10/14/17 09:45 Ordered 40 mg IVPUSH Q8H Medication Orders Albuterol (Proventil Neb Soln) 2.5 mg NEB Q4HRRT PRN PRN Reason: dyspnea Last Admin: 10/14/17 00:17 Dose: 2.5 mg Aspirin (Halfprin) 81 mg PO DAILY [facility] Calcium Carbonate/Glycine (Tums) 1,000 mg PO DAILY [facility] Enoxaparin Sodium (Lovenox) 40 mg SUBCUT DAILY [facility] Last Admin: 10/14/17 09:21 Dose: Not Given Folic Acid (Folic Acid) 1 mg PO DAILY [facility] Sodium Chloride (Normal Saline) 1,000 mls @ 125 mls/hr IV ASDIRECTED [facility] Last Admin: 10/14/17 06:27 Dose: 125 mls/hr Admin: 10/13/17 21:19 Dose: 125 mls/hr Ketorolac Tromethamine (Toradol) 30 mg IVPUSH Q8H PRN PRN Reason: Pain Stop: 10/19/17 00:23 Last Admin: 10/14/17 08:11 Dose: 30 mg Admin: 10/14/17 00:47 Dose: 30 mg Methylprednisolone Sodium Succinate (Solu-Medrol) 40 mg IVPUSH Q8H [facility] Morphine Sulfate (Morphine) 2 mg IVPUSH Q2H PRN PRN Reason: Pain (severe 7-10) Last Admin: 10/14/17 05:40 Dose: 2 mg Admin: 10/13/17 22:02 Dose: 2 mg Multivitamins (Thera) 1 each PO DAILY [facility] Nitroglycerin (Nitrostat) 0.4 mg SL Q5M PRN PRN Reason: Chest Pain Omeprazole (Omeprazole) 20 mg PO ACBRK [facility] Ondansetron HCl (Zofran) 4 mg IVPUSH Q6H PRN PRN Reason: Nausea/Vomiting Last Admin: 10/14/17 05:40 Dose: 4 mg Tramadol HCl (Ultram) 50 mg PO Q6H PRN PRN Reason: Pain Assessment/Plan Comment:: Assessment/plan #. Probable community-acquired pneumonia Patient presented with cough shortness of breath and chills. Chest x-ray did not show any infiltrate the CT scan did show infiltrate The patient has elevated white cell count #. Sepsis Patient has elevated white cell count and also has lactic acidosis. Serum lactate was up to 2.5 #. Lactic acidosis Likely due to sepsis #. Pericarditis. Patient has been doctoring at [facility] for current chest pain thought to be due to pericarditis Has been on that the methotrexate after being on steroids for a while Plan: Admit patient to medical floor Obtain repeat lactate Check troponin Intravenous is azithromycin Intravenous ceftriaxone Intravenous fluid with normal saline going at 125 mL an hour Intravenous morphine for pain control
--- NOTE | 2017-10-14 10:18 | PCM.PN ---
- General Info Date of Service: 10/14/17 Admission Dx/Problem (Free Text): Admission Diagnosis/Problem Admission Diagnosis/Problem Chest pain at rest Functional Status: Reports: Tolerating Diet - Review of Systems General: Reports: Weakness Pulmonary: Reports: Shortness of Breath, Cough, Sputum Cardiovascular: Reports: Chest Pain Gastrointestinal: Reports: No Symptoms Genitourinary: Reports: No Symptoms Skin: Reports: No Symptoms - Patient Data Vitals - Most Recent: Last Vital Signs Temp 37.1 C 10/14/17 09:25 Pulse 99 10/14/17 07:30 Resp 20 10/14/17 07:30 BP 116/75 10/14/17 07:30 Pulse Ox 93 L 10/14/17 07:30 Weight - Most Recent: 104.236 kg I&O - Last 24 Hours: Intake & Output 10/13/17 10/14/17 10/14/17 22:59 06:59 14:59 Intake Total 235 2073 1140 Output Total 500 Balance 235 1573 1140 Lab Results Last 24 Hours: Laboratory Results - last 24 hr 10/14/17 10/14/17 10/14/17 Range/Units 00:03 06:58 06:58 WBC 15.5 H (5.0-10.0) 10^3/uL RBC 5.48 (4.6-6.2) 10^6/uL Hgb 11.3 L (14.0-18.0) g/dL Hct 34.5 L (40.0-54.0) % MCV 63.0 L (80-100) fL MCH 20.6 L (27.0-34.0) pg MCHC 32.8 L (33.0-35.0) g/dL Plt Count 294 (150-450) 10^3/uL Neut % (Auto) 77.0 H (42.2-75.2) % Lymph % (Auto) 11.1 L (20.5-50.1) % [place] % (Auto) 11.4 H (2-8) % Eos % (Auto) 0.2 L (1.0-3.0) % Baso % (Auto) 0.3 (0.0-1.0) % Sodium 135 (135-145) mmol/L Potassium 4.0 (3.6-5.0) mmol/L Chloride 102 (101-111) mmol/L Carbon Dioxide 25.0 (21.0-31.0) mmol/L Anion Gap 12.0 BUN 17 (7-18) mg/dL Creatinine 1.2 (0.6-1.3) mg/dL Est Cr Clr Drug Dosing 77.73 mL/min Estimated GFR (MDRD) > 60 BUN/Creatinine Ratio 14.16 Glucose 117 H (74-105) mg/dL Lactic Acid 2.5 H (0.5-2.2) mmol/L Calcium 8.5 (8.4-10.2) mg/dl Total Bilirubin 1.5 H (0.2-1.0) mg/dL AST 22 (10-42) IU/L ALT 24 (10-60) IU/L Alkaline Phosphatase 47 (42-121) IU/L Troponin I (0.00-0.02) ng/ml Total Protein 7.1 (6.7-8.2) g/dl Albumin 3.8 (3.2-5.5) g/dl Globulin 3.3 Albumin/Globulin Ratio 1.15 10/14/17 10/14/17 Range/Units 06:58 06:58 WBC (5.0-10.0) 10^3/uL RBC (4.6-6.2) 10^6/uL Hgb (14.0-18.0) g/dL Hct (40.0-54.0) % MCV (80-100) fL MCH (27.0-34.0) pg MCHC (33.0-35.0) g/dL Plt Count (150-450) 10^3/uL Neut % (Auto) (42.2-75.2) % Lymph % (Auto) (20.5-50.1) % [place] % (Auto) (2-8) % Eos % (Auto) (1.0-3.0) % Baso % (Auto) (0.0-1.0) % Sodium (135-145) mmol/L Potassium (3.6-5.0) mmol/L Chloride (101-111) mmol/L Carbon Dioxide (21.0-31.0) mmol/L Anion Gap BUN (7-18) mg/dL Creatinine (0.6-1.3) mg/dL Est Cr Clr Drug Dosing mL/min Estimated GFR (MDRD) BUN/Creatinine Ratio Glucose (74-105) mg/dL Lactic Acid 1.4 (0.5-2.2) mmol/L Calcium (8.4-10.2) mg/dl Total Bilirubin (0.2-1.0) mg/dL AST (10-42) IU/L ALT (10-60) IU/L Alkaline Phosphatase (42-121) IU/L Troponin I < 0.02 (0.00-0.02) ng/ml Total Protein (6.7-8.2) g/dl Albumin (3.2-5.5) g/dl Globulin Albumin/Globulin Ratio Med Orders - Current: Current Medications Albuterol (Proventil Neb Soln) 2.5 mg NEB Q4HRRT PRN PRN Reason: dyspnea Last Admin: 10/14/17 00:17 Dose: 2.5 mg Aspirin (Halfprin) 81 mg PO DAILY [facility] Calcium Carbonate/Glycine (Tums) 1,000 mg PO DAILY [facility] Enoxaparin Sodium (Lovenox) 40 mg SUBCUT DAILY [facility] Last Admin: 10/14/17 09:21 Dose: Not Given Folic Acid (Folic Acid) 1 mg PO DAILY [facility] Sodium Chloride (Normal Saline) 1,000 mls @ 125 mls/hr IV ASDIRECTED [facility] Last Admin: 10/14/17 06:27 Dose: 125 mls/hr Ketorolac Tromethamine (Toradol) 30 mg IVPUSH Q8H PRN PRN Reason: Pain Stop: 10/19/17 00:23 Last Admin: 10/14/17 08:11 Dose: 30 mg Methylprednisolone Sodium Succinate (Solu-Medrol) 40 mg IVPUSH Q8HR [facility] Morphine Sulfate (Morphine) 2 mg IVPUSH Q2H PRN PRN Reason: Pain (severe 7-10) Last Admin: 10/14/17 05:40 Dose: 2 mg Multivitamins (Thera) 1 each PO DAILY [facility] Nitroglycerin (Nitrostat) 0.4 mg SL Q5M PRN PRN Reason: Chest Pain Omeprazole (Omeprazole) 20 mg PO ACBRK [facility] Ondansetron HCl (Zofran) 4 mg IVPUSH Q6H PRN PRN Reason: Nausea/Vomiting Last Admin: 10/14/17 05:40 Dose: 4 mg Tramadol HCl (Ultram) 50 mg PO Q6H PRN PRN Reason: Pain Discontinued Medications Azithromycin 500 mg/ Sodium (Chloride) 250 mls @ 250 mls/hr IV ONETIME ONE Stop: 10/13/17 22:07 Last Admin: 10/13/17 21:21 Dose: 250 mls/hr Ibuprofen (Motrin) 400 mg PO Q6H PRN PRN Reason: Pain (mild 1-3) Stop: 10/14/17 00:39 Iopamidol (Isovue-370 (76%)) 100 ml IVPUSH ONETIME ONE Stop: 10/13/17 19:12 Iopamidol (Isovue-300 (61%)) 75 ml IVPUSH ONETIME ONE Stop: 10/13/17 20:54 Last Admin: 10/13/17 20:57 Dose: 75 ml Lorazepam (Ativan) 1 mg IVPUSH ONETIME ONE Stop: 10/13/17 20:01 Last Admin: 10/13/17 20:05 Dose: 1 mg Morphine Sulfate (Morphine) 4 mg IVPUSH ONETIME ONE Stop: 10/13/17 19:32 Last Admin: 10/13/17 19:41 Dose: 4 mg Ondansetron HCl (Zofran) 4 mg IV ONETIME ONE Stop: 10/13/17 19:33 Last Admin: 10/13/17 19:37 Dose: 4 mg - Exam General: Alert, Oriented, No Acute Distress Neck: Supple Lungs: Decreased Breath Sounds Cardiovascular: Regular Rate Extremities: Normal Inspection, Normal Range of Motion, Non-Tender, No Pedal Edema, Normal Capillary Refill - Problem List & Annotations (1) Left lower lobe pneumonia SNOMED Code(s): 365013169 Code(s): J18.1 - LOBAR PNEUMONIA, UNSPECIFIED ORGANISM Status: Acute Priority: Medium Current Visit: Yes Onset Date: ~10/08/17 Qualifiers: Pneumonia type: due to unspecified organism Qualified Code(s): J18.1 - Lobar pneumonia, unspecified organism (2) Atypical chest pain SNOMED Code(s): 548871758 Code(s): R07.89 - OTHER CHEST PAIN Status: Acute Current Visit: No (3) Pleurisy SNOMED Code(s): 262539906 Code(s): R09.1 - PLEURISY Status: Acute Current Visit: No - Problem List Review Problem List Initiated/Reviewed/Updated: Yes - My Orders Last 24 Hours: My Active Orders 10/13/17 23:53 RT Aerosol Therapy [RC] ASDIRECTED Albuterol [Proventil Neb Soln] 2.5 mg NEB Q4HRRT PRN 10/13/17 23:54 Flutter Valve Therapy [RT Chest Physiotherapy] [RC] ASDIRECTED RT Incentive Spirometry [RC] ASDIRECTED 10/14/17 00:23 Ketorolac [Toradol] 30 mg IVPUSH Q8H PRN 10/14/17 09:20 Nitroglycerin [Nitrostat] 0.4 mg SL ASDIRECTED PRN Tramadol 50 mg PO Q6H PRN 10/14/17 09:45 methylPREDNISolone Sod Succ [Solu-MEDROL] 40 mg IVPUSH Q8H 10/15/17 09:00 Aspirin [Halfprin] 81 mg PO DAILY Calcium 1,200 mg PO DAILY Folic Acid 1 mg PO DAILY Multivitamin 1 tab PO DAILY Omeprazole 20 mg PO DAILY 10/15/17 09:39 CBC WITH AUTO DIFF [HEME] Routine 10/15/17 09:40 BASIC METABOLIC PANEL,BMP [CHEM] Routine - Plan Plan:: Assessment/plan #. Probable community-acquired pneumonia Patient presented with cough shortness of breath and chills. Chest x-ray did not show any infiltrate the CT scan did show infiltrate The patient has elevated white cell count #. Sepsis Patient has elevated white cell count and also has lactic acidosis. Serum lactate was up to 2.5 #. Lactic acidosis Likely due to sepsis #. Pericarditis. Patient has been doctoring at [facility] for current chest pain thought to be due to pericarditis Has been on that the methotrexate after being on steroids for a while Plan: Patient continued to complain of chest pain despite intravenous morphine I proceeded to give intravenous Toradol and that seemed to help. Start patient on Solu-Medrol 40 mg every 8 hours Send sample for complete blood count Send sample for basic metabolic panel Start patient on tramadol
[2017-10-14] MEDS: methylPREDNISolone Sodium Succinate 40 MG/1 ML SDV IVPUSH SCH ×3 (10:29→21:39)
[2017-10-14] MEDS: traMADol 50 MG Tab PO PRN ×2 (15:52→21:51)
[2017-10-14] MEDS ORDERED: Sodium Chloride 0.9% 10 ML Syringe FLUSH PRN (21:54)
[2017-10-15] MEDS: Sodium Chloride 0.9% 1,000 ML IV SCH (01:31)
[2017-10-15] MEDS: methylPREDNISolone Sodium Succinate 40 MG/1 ML SDV IVPUSH SCH (05:34)
[2017-10-15] MEDS ORDERED: Omeprazole 20 MG Cap.CR PO SCH (06:00)
[2017-10-15 06:42] LABS: CHLORIDE,CL 103 mmol/L (101-111); SODIUM,NA 135 mmol/L (135-145)
[2017-10-15] MEDS ORDERED: Folic Acid 1 MG Tab PO SCH (09:00)
[2017-10-15] MEDS ORDERED: Multivitamins,Therapeutic Tab PO SCH (09:00)
[2017-10-15] MEDS ORDERED: Aspirin 81 MG Tab.EC PO SCH (09:00)
[2017-10-15] MEDS ORDERED: Calcium Carbonate 500 MG Tab.Chew PO SCH (09:00)
[2017-10-15] MEDS: Enoxaparin 40 MG/0.4 ML Syringe SUBCUT SCH (09:17)
--- NOTE | 2017-10-15 10:13 | PCM.DCSUM1 ---
Discharge Summary - Hospital Course Free Text/Narrative:: The patient presented to the emergency room with complaint of chest pain and shortness of breath. Chest x-ray did not show an obvious cause but the patient was also noted to have elevated white cell count of 19,000. His serum lactate was mildly elevated. He got admitted to the hospital and we obtained CT scan of the chest. CT scan showed evidence of pneumonia and the patient was on intravenous antibiotics and IV fluids. His serum lactate is back to normal as well as his vital signs. Patient has been ambulatory and feels like going home. He'll be discharged home on oral antibiotics and will follow up with his primary care provider in one week Assessment/plan #. Probable community-acquired pneumonia Patient presented with cough shortness of breath and chills. Chest x-ray did not show any infiltrate the CT scan did show infiltrate The patient has elevated white cell count #. Sepsis Patient has elevated white cell count and also has lactic acidosis. Serum lactate was up to 2.5 #. Lactic acidosis Likely due to sepsis #. Pericarditis. Patient has been doctoring at [facility] for current chest pain thought to be due to pericarditis Has been on that the methotrexate after being on steroids for a while - Discharge Data Discharge Date: 10/15/17 Discharge Disposition: Home, Self-Care 01 Condition: Good - Discharge Diagnosis/Problem(s) (1) Left lower lobe pneumonia SNOMED Code(s): 184104677 ICD Code: J18.1 - LOBAR PNEUMONIA, UNSPECIFIED ORGANISM Status: Acute Priority: Medium Current Visit: Yes Onset Date: ~10/08/17 Qualifiers: Pneumonia type: due to unspecified organism Qualified Code(s): J18.1 - Lobar pneumonia, unspecified organism (2) Atypical chest pain SNOMED Code(s): 406343014 ICD Code: R07.89 - OTHER CHEST PAIN Status: Acute Current Visit: No (3) Pleurisy SNOMED Code(s): 174093101 ICD Code: R09.1 - PLEURISY Status: Acute Current Visit: No - Patient Instructions Diet: Usual Diet as Tolerated Activity: As Tolerated Driving: May Drive Today Showering/Bathing: May Shower Notify Provider of: Fever, Nausea and/or Vomiting - Discharge Plan Prescriptions/Med Rec: Azithromycin 500 mg PO DAILY #6 tablet Cefdinir [Omnicef] 300 mg PO BID #22 cap Home Medications: Home Meds Multivitamin 1 tab PO DAILY 12/18/13 [History] Aspirin [Halfprin] 81 mg PO DAILY 12/26/13 [History] Ibuprofen 800 mg PO Q8H 12/26/13 [History] Nitroglycerin 0.4 mg SL ASDIRECTED PRN 12/26/13 [History] Omeprazole [Prilosec] 20 mg PO DAILY 12/26/13 [History] Calcium 1,200 mg PO DAILY 07/19/17 [History] Folic Acid 1 mg PO DAILY 07/19/17 [History] Methotrexate Sodium [Methotrexate] 20 mg PO WEEKLY 07/19/17 [History] Tramadol 50 mg PO Q6H PRN 07/19/17 [History] Vit D 5000 Iu 1 cap PO DAILY 07/19/17 [History] predniSONE [Prednisone] 10 mg PO DAILY 07/19/17 [History] Azithromycin 500 mg PO DAILY #6 tablet 10/15/17 [Rx] Cefdinir [Omnicef] 300 mg PO BID #22 cap 10/15/17 [Rx] Patient Handouts: Cefdinir capsules, Naproxen and naproxen sodium oral immediate-release tablets, Azithromycin tablets, Community-Acquired Pneumonia, Adult, [id number] Referrals: PCP,None [Primary Care Provider] - - General Info Admission Dx/Problem (Free Text: Admission Diagnosis/Problem Admission Diagnosis/Problem Chest pain at rest - Patient Data Vitals - Most Recent: Last Vital Signs Temp 36.9 C 10/15/17 07:47 Pulse 99 10/15/17 07:47 Resp 20 10/15/17 07:47 BP 127/73 10/15/17 07:47 Pulse Ox 94 L 10/15/17 07:47 Weight - Most Recent: 104.236 kg I&O - Last 24 hours: Intake & Output 10/14/17 10/15/17 10/15/17 22:59 06:59 14:59 Intake Total 2187 1488 1230 Output Total 2200 1200 1400 Balance -13 288 -170 Lab Results - Last 24 hrs: Laboratory Results - last 24 hr 10/15/17 10/15/17 Range/Units 06:12 06:12 WBC 20.2 H (5.0-10.0) 10^3/uL RBC 5.29 (4.6-6.2) 10^6/uL Hgb 10.9 L (14.0-18.0) g/dL Hct 33.4 L (40.0-54.0) % MCV 63.1 L (80-100) fL MCH 20.6 L (27.0-34.0) pg MCHC 32.6 L (33.0-35.0) g/dL Plt Count 283 (150-450) 10^3/uL Neut % (Auto) 92.4 H (42.2-75.2) % Lymph % (Auto) 4.6 L (20.5-50.1) % [place] % (Auto) 2.8 (2-8) % Eos % (Auto) 0.0 L (1.0-3.0) % Baso % (Auto) 0.2 (0.0-1.0) % Sodium 135 (135-145) mmol/L Potassium 4.2 (3.6-5.0) mmol/L Chloride 103 (101-111) mmol/L Carbon Dioxide 24.0 (21.0-31.0) mmol/L Anion Gap 12.2 BUN 17 (7-18) mg/dL Creatinine 1.0 (0.6-1.3) mg/dL Est Cr Clr Drug Dosing 93.28 mL/min Estimated GFR (MDRD) > 60 Glucose 147 H (74-105) mg/dL Calcium 9.0 (8.4-10.2) mg/dl [place] Results - Last 24 hrs: Microbiology 10/13/17 21:17 Aerobic Blood Culture - Preliminary Blood - Venous - Lab Draw NO GROWTH AFTER 1 DAY Anaerobic Blood Culture - Preliminary NO GROWTH AFTER 1 DAY Med Orders - Current: Current Medications Albuterol (Proventil Neb Soln) 2.5 mg NEB Q4HRRT PRN PRN Reason: dyspnea Last Admin: 10/14/17 00:17 Dose: 2.5 mg Aspirin (Halfprin) 81 mg PO DAILY [facility] Last Admin: 10/15/17 09:20 Dose: 81 mg Calcium Carbonate/Glycine (Tums) 1,000 mg PO DAILY [facility] Last Admin: 10/15/17 09:20 Dose: 1,000 mg Enoxaparin Sodium (Lovenox) 40 mg SUBCUT DAILY [facility] Last Admin: 10/15/17 09:17 Dose: Not Given Folic Acid (Folic Acid) 1 mg PO DAILY [facility] Last Admin: 10/15/17 09:19 Dose: 1 mg Ketorolac Tromethamine (Toradol) 30 mg IVPUSH Q8H PRN PRN Reason: Pain Stop: 10/19/17 00:23 Last Admin: 10/14/17 08:11 Dose: 30 mg Methylprednisolone Sodium Succinate (Solu-Medrol) 40 mg IVPUSH Q8HR [facility] Last Admin: 10/15/17 05:34 Dose: 40 mg Morphine Sulfate (Morphine) 2 mg IVPUSH Q2H PRN PRN Reason: Pain (severe 7-10) Last Admin: 10/14/17 05:40 Dose: 2 mg Multivitamins (Thera) 1 each PO DAILY [facility] Last Admin: 10/15/17 09:19 Dose: 1 each Nitroglycerin (Nitrostat) 0.4 mg SL Q5M PRN PRN Reason: Chest Pain Omeprazole (Omeprazole) 20 mg PO ACBRK [facility] Last Admin: 10/15/17 05:34 Dose: 20 mg Ondansetron HCl (Zofran) 4 mg IVPUSH Q6H PRN PRN Reason: Nausea/Vomiting Last Admin: 10/14/17 05:40 Dose: 4 mg Sodium Chloride (Saline Flush) 10 ml FLUSH ASDIRECTED PRN PRN Reason: Keep Vein Open Tramadol HCl (Ultram) 50 mg PO Q6H PRN PRN Reason: Pain Last Admin: 10/14/17 21:51 Dose: 50 mg Discontinued Medications Sodium Chloride (Normal Saline) 1,000 mls @ 125 mls/hr IV ASDIRECTED [facility] Last Admin: 10/15/17 01:31 Dose: 125 mls/hr Azithromycin 500 mg/ Sodium (Chloride) 250 mls @ 250 mls/hr IV ONETIME ONE Stop: 10/13/17 22:07 Last Admin: 10/13/17 21:21 Dose: 250 mls/hr Ibuprofen (Motrin) 400 mg PO Q6H PRN PRN Reason: Pain (mild 1-3) Stop: 10/14/17 00:39 Iopamidol (Isovue-370 (76%)) 100 ml IVPUSH ONETIME ONE Stop: 10/13/17 19:12 Last Admin: 10/13/17 19:11 Dose: Not Given Iopamidol (Isovue-300 (61%)) 75 ml IVPUSH ONETIME ONE Stop: 10/13/17 20:54 Last Admin: 10/13/17 20:57 Dose: 75 ml Lorazepam (Ativan) 1 mg IVPUSH ONETIME ONE Stop: 10/13/17 20:01 Last Admin: 10/13/17 20:05 Dose: 1 mg Morphine Sulfate (Morphine) 4 mg IVPUSH ONETIME ONE Stop: 10/13/17 19:32 Last Admin: 10/13/17 19:41 Dose: 4 mg Ondansetron HCl (Zofran) 4 mg IV ONETIME ONE Stop: 10/13/17 19:33 Last Admin: 10/13/17 19:37 Dose: 4 mg - Exam General: Reports: Oriented Lungs: Reports: Clear to Auscultation Cardiovascular: Reports: Regular Rate, No Murmurs GI/Abdominal Exam: Soft, Non-Tender Extremities: Normal Inspection Psy/Mental Status: Reports: Alert, Normal Affect *Q Meaningful Use (DIS) - VTE *Q VTE Criteria *Q: - Stroke *Q Stroke Criteria *Q: - AMI *Q AMI Criteria *Q:
--- NOTE | 2017-10-15 17:44 | EKG ---
10/13/2017 - EFREN MALIN - TIME: 1741 hours. FINDINGS: EKG shows sinus tachycardia. [facility] /[id number]
== END 2017-10-15 13:15 | disposition home or self-care (01) | DRG 720 ==
LOC: DL.ED 17:18 → DL.MS 19:35
PROVIDERS: ADMIT Hospitalist; ATTEND Hospitalist
DX: A41.9 Sepsis, unspecified organism (principal); J18.9 Pneumonia, unspecified organism; I31.9 Disease of pericardium, unspecified; E87.2 Acidosis; K21.9 Gastro-esophageal reflux disease without esophagitis; E78.00 Pure hypercholesterolemia, unspecified; F17.200 Nicotine dependence, unspecified, uncomplicated; H54.7 Unspecified visual loss; Z88.0 Allergy status to penicillin; Z79.82 Long term (current) use of aspirin; Z79.899 Other long term (current) drug therapy
CPT/HCPCS: 36415; 71046; 71260; 80048; 80053; 81001; 83605; 84484; 85025; 85379; 87040; 87070; 87205; 87804; 93005; 93306; 96374; 96375; 99285; A9270-GY; J0456; J1885; J2060; J2270; J2405; J2920; J7030; J7050; J7620-GY; Q9967

== ENCOUNTER 2023-10-26 20:01 | Emergency (ER) | payer BC | END 2023-10-26 21:31 | disposition home or self-care (01) | LOC: DL.ED 20:01 | DX: J06.9 Acute upper respiratory infection, unspecified (principal); K21.9 Gastro-esophageal reflux disease without esophagitis; Z88.0 Allergy status to penicillin; Z79.82 Long term (current) use of aspirin; Z79.899 Other long term (current) drug therapy | CPT/HCPCS: 99283 ==

== ENCOUNTER 2024-10-11 19:05 | Emergency (ER) | payer BC ==
[2024-10-11] MEDS ORDERED: Sodium Chloride 0.9% 10 ML Syringe FLUSH PRN (19:54)
[2024-10-11 20:30] LABS: HEMATOCRIT 37.9 % (40.0-54.0); HEMOGLOBIN 12.3 g/dL (14.0-18.0); MEAN CORPUSCULAR HGB CONC 32.5 g/dL (33.0-35.0); MEAN CORPUSCULAR VOLUME 58.7 fL (80-100); PLATELET COUNT,PLT 297 10^3/uL (150-450); RED BLOOD CELL COUNT 6.46 10^6/uL (4.6-6.2); WHITE BLOOD CELL COUNT,WBC 15.1 10^3/uL (5.0-10.0)
[2024-10-11 20:37] LABS: BASOPHILS PERCENT AUTO 0.5 % (0.0-1.0); EOSINOPHILS PERCENT AUTO 1.3 % (1.0-3.0); LYMPHOCYTES PERCENT AUTO 6.5 % (20.5-50.1); MONOCYTES PERCENT AUTO 9.6 % (2-8); NEUTROPHILS PERCENT AUTO 82.1 % (42.2-75.2)
[2024-10-11] MEDS: Acetaminophen 500 MG Tab PO ONE (20:49)
[2024-10-11 20:50] LABS: ANION GAP 15.5 mEq/L (7-13); CALCIUM 8.9 mg/dL (8.5-10.1); CREATININE 1.44 mg/dL (0.70-1.30); EST CRCL DRUG DOSING (CG) 57.02 mL/min
[2024-10-11 20:53] LABS: INR 0.9 (0.9-1.2); PROTHROMBIN TIME 9.8 SEC (9.0-12.0); PTT,PARTIAL THROMBOPLSTIN TIME 23.6 SEC (22.0-34.0)
[2024-10-11 20:57] LABS: BAND PERCENT MAN 2 %; EOSINOPHILS PERCENT MAN 1 % (1-3); LYMPHOCYTES PERCENT MAN 7 % (20-50); MONOCYTES PERCENT MAN 8 % (2-8); SEG NEUTROPHILS PERCENT MAN 82 % (42-75)
[2024-10-11 21:15] LABS: POTASSIUM,K 4.4 mmol/L (3.5-5.1)
[2024-10-11] MEDS: methylPREDNISolone Sodium Succinate 125 MG/2 ML SDV IM ONE (22:01)
[2024-10-11] MEDS: Levofloxacin 500 MG Tab PO ONE (22:01)
[2024-10-11] MEDS: predniSONE 20 MG Tab PO ONE (22:49)
[2024-10-12 00:21] LABS: A/G RATIO 0.9; ALBUMIN 3.7 g/dL (3.4-5.0); BUN/CREATININE RATIO 7.6 (No establ ref range)
[2024-10-12 00:26] LABS: LACTIC ACID 1.7 mmol/L (0.4-2.0)
== END 2024-10-12 00:29 | disposition home or self-care (01) ==
LOC: DL.ED 19:05
DX: J15.9 Unspecified bacterial pneumonia (principal); K21.9 Gastro-esophageal reflux disease without esophagitis; Z88.0 Allergy status to penicillin; Z79.899 Other long term (current) drug therapy; Z79.82 Long term (current) use of aspirin; Z79.1 Long term (current) use of non-steroidal anti-inflammatories (NSAID)
CPT/HCPCS: 36415; 71045; 71046; 80053; 83605; 83880; 84484; 85025; 85610; 85730; 87040; 87428-QW; 93005; 93010; 96372; 99284; A9270-GY; J7512